=== PATIENT | female | born 1980 | race Caucasian/White ===

== ENCOUNTER 2023-04-16 07:03 | Inpatient (IN) | payer OTHER ==
[2023-04-16] MEDS ORDERED: Ondansetron PF 4 MG/2 ML Vial ONE (07:14)
[2023-04-16] MEDS ORDERED: Morphine 4 MG/ML VIAL ONE (07:14)
[2023-04-16 07:23] LABS: #Basophils 0.1 thou/uL (0.0-0.2); #Eosinphils 0.1 thou/uL (0.0-0.7); #Monocytes 0.8 thou/uL (0.11-0.59); #Neutrophils 7.3 thou/uL (1.40-6.50); %Basophils 0.5 % (0.0-1.0); %Eosinophils 0.9 % (0.0-10.0); %Lymphocytes 21.4 % (21.0-51.0); %Monocytes 7.3 % (0.0-10.0); %Neutrophils 69.4 % (42.0-75.0); Hematocrit 39.1 % (36.0-47.0); Mean Corpuscular HGB CONC 33.2 g/dL (32.0-36.0); Mean Corpuscular Hemoglobin 30.4 pg (27.0-31.0); Mean Corpuscular Volume 91.4 fl (78.0-98.0); Mean Platelet Volume 9.1 fL (7.4-10.4); Platelet Count 350 10x3/uL (130-400); RBC Distribution Width 13.1 % (11.5-14.5); Red Blood Cell (RBC) Count 4.28 mill/uL (4.20-5.40); White Blood Cell (WBC) Count 10.5 10x3/uL (4.8-10.8)
[2023-04-16 07:36] LABS: Prothrombin Time 13.1 sec (12.0-14.7)
[2023-04-16 07:38] LABS: BHCG - Serum Negative (NEGATIVE); Pregs Control Background? CLEAR/WHITE (CLR/WHITE); Pregs Control Bar Appear? YES (CONTROL BAR)
[2023-04-16] MEDS ORDERED: Boostrix 0.5 ML (Tdap) VIAL (>/=7 yrs of age) ONE (07:39)
[2023-04-16] MEDS ORDERED: Sodium Chloride 0.9% 100 ML ONE (07:39)
[2023-04-16] MEDS ORDERED: CEFAZOLIN 1 GM VIAL ONE (07:39)
[2023-04-16] MEDS ORDERED: fentaNYL 50 mcg/mL 1 mL Vial ONE ×5 (08:35→16:07)
[2023-04-16 08:36] LABS: ALT (SGPT) 33 U/L (8-55); AST (SGOT) 49 U/L (5-34); Alkaline Phosphatase 56 U/L (40-110); Anion Gap 17 mmol/L (10-20); BUN (Urea Nitrogen) 11 mg/dL (7.0-18.7); Bilirubin, Total 0.5 mg/dL (0.2-1.2); Calc. Creatinine Clearance 0 mL/min (70-130); Calcium 8.7 mg/dL (7.8-10.44); Carbon Dioxide 29 mmol/L (22-29); Chloride 94 mmol/L (98-107); Estimated GFR 65; Globulin 2.6 g/dL (2.4-3.5); Glucose 137 mg/dL (70-105); Lipase 36 U/L (8-78); Protein, Total 6.6 g/dL (6.0-8.3); Sodium 137 mmol/L (136-145)
[2023-04-16 08:46] LABS: Potassium 2.6 mmol/L (3.5-5.1)
[2023-04-16] MEDS ORDERED: Acetaminophen 325 MG TAB PO PRN (09:41)
[2023-04-16] MEDS ORDERED: Ondansetron ODT 4 MG TAB PO PRN (09:41)
[2023-04-16] MEDS ORDERED: traMADol HCl 50 MG TAB PO PRN (09:41)
[2023-04-16] MEDS ORDERED: Glucagon 1 MG/ML KIT IM PRN (09:41)
[2023-04-16] MEDS ORDERED: Ondansetron PF 4 MG/2 ML Vial IVP PRN (09:41)
[2023-04-16] MEDS ORDERED: Dextrose 50% Abboject 50 ML SYRINGE SLOW IVP PRN (09:41)
[2023-04-16] MEDS ORDERED: Dextrose 5% in Water 1,000 ML IV PRN (09:41)
[2023-04-16] MEDS ORDERED: Ketamine In 0.9 % NaCl 50 MG/5 ML SYRINGE ONE (10:29)
[2023-04-16] MEDS ORDERED: CEFAZOLIN 2 GM in Sodium Chloride 0.9% 100 ML IVPB SCH (11:00)
[2023-04-16 13:02] LABS: Potassium 2.7 mmol/L (3.5-5.1)
[2023-04-16] MEDS: Potassium Chloride 30 MEQ in Sodium Chloride 0.9% 250 ML 250 ML IVPB SCH (18:50)
[2023-04-16] MEDS: Morphine 2 MG/ML VIAL SLOW IVP PRN (19:00)
[2023-04-16 20:05] VITALS: BMI 21.3
[2023-04-16] MEDS: CEFAZOLIN 2 GM in Sodium Chloride 0.9% 100 ML IVPB SCH (22:43)
[2023-04-17 05:04] LABS: #Neutrophils 6.2 thou/uL (1.40-6.50); %Basophils 0.2 % (0.0-1.0); %Eosinophils 0.1 % (0.0-10.0); %Monocytes 10.9 % (0.0-10.0); %Neutrophils 68.6 % (42.0-75.0); Hematocrit 35.4 % (36.0-47.0); Hemoglobin 11.8 g/dL (12.0-16.0); Mean Corpuscular HGB CONC 33.3 g/dL (32.0-36.0); Mean Corpuscular Hemoglobin 30.5 pg (27.0-31.0); Mean Corpuscular Volume 91.5 fl (78.0-98.0); Mean Platelet Volume 9.8 fL (7.4-10.4); Platelet Count 271 10x3/uL (130-400); RBC Distribution Width 13.5 % (11.5-14.5); Red Blood Cell (RBC) Count 3.87 mill/uL (4.20-5.40)
[2023-04-17 07:25] LABS: Anion Gap 16 mmol/L (10-20); BUN (Urea Nitrogen) 9 mg/dL (7.0-18.7); Calc. Creatinine Clearance 92 mL/min (70-130); Calcium 8.6 mg/dL (7.8-10.44); Carbon Dioxide 20 mmol/L (22-29); Chloride 106 mmol/L (98-107); Estimated GFR 107; Glucose 103 mg/dL (70-105); Potassium 3.2 mmol/L (3.5-5.1); Sodium 139 mmol/L (136-145)
[2023-04-17] MEDS: FLU VACC QS2023-24(6MOS UP)/PF 60 MCG/0.5 ML SYRINGE IM ONE (08:20)
[2023-04-17] MEDS ORDERED: PROPOFOL 20 ML ONE (11:20)
[2023-04-17] MEDS ORDERED: Lidocaine 1% PF 5 ML VIAL ONE (11:20)
[2023-04-17] MEDS ORDERED: fentaNYL PF 100 MCG/2 ML SYRINGE ONE (11:20)
[2023-04-17] MEDS ORDERED: fentaNYL 50 mcg/mL 1 mL Vial ONE ×2 (11:21→12:45)
[2023-04-17] MEDS ORDERED: Bupivacaine PF 0.5% 30 ML VIAL ONE (11:21)
[2023-04-17] MEDS ORDERED: Midazolam HCl 2 mg/2 ml Vial ONE (11:21)
[2023-04-17] MEDS ORDERED: CEFAZOLIN 2 GM VIAL ONE (11:25)
[2023-04-17] MEDS ORDERED: Sodium Chloride 0.9% 100 ML ONE (11:25)
[2023-04-17] MEDS ORDERED: Ondansetron PF 4 MG/2 ML Vial ONE (11:41)
[2023-04-17] MEDS ORDERED: Dexamethasone 20 MG/5 ML VIAL ONE (11:41)
[2023-04-17] MEDS ORDERED: Ketorolac Tromethamine 30 MG (1 mL) VIAL ONE (11:41)
[2023-04-17] MEDS ORDERED: fentaNYL 50 mcg/mL 1 mL Vial SLOW IVP PRN (11:56)
[2023-04-17] MEDS ORDERED: traMADol HCl 50 MG TAB PO PRN ×2 (12:00)
[2023-04-17] MEDS: Ketorolac Tromethamine 30 MG (1 mL) VIAL IVP SCH (12:00)
[2023-04-17] MEDS ORDERED: Ropivacaine 0.2% 550 ML 550 ML NERVE BLCK SCH (12:00)
[2023-04-17] MEDS ORDERED: Ondansetron PF 4 MG/2 ML Vial IVP PRN (12:00)
[2023-04-17] MEDS ORDERED: Promethazine HCl 25 MG/ML VIAL IM PRN (12:00)
[2023-04-17] MEDS ORDERED: Zolpidem Tartrate 5 MG TAB PO PRN (12:00)
[2023-04-17] MEDS ORDERED: HYDROcodone/Acetaminophen 5/325 mg Tablet PO PRN ×2 (12:00)
[2023-04-17] MEDS ORDERED: ePHEDrine Sulfate 50 MG/10 ML VIAL ONE (12:25)
[2023-04-17] MEDS: Potassium Chloride 20 MEQ in Premix 1 BAG IVPB SCH (14:44)
[2023-04-17] MEDS: Gabapentin 300 MG CAP PO SCH (15:42)
[2023-04-17] MEDS: Lactulose 20 GM (30 mL) UDCUP PO SCH (15:42)
[2023-04-17] MEDS: traMADol HCl 50 MG TAB PO SCH (17:59)
[2023-04-17] MEDS: Acetaminophen 500 MG TAB PO SCH (17:59)
[2023-04-17] MEDS: CEFAZOLIN 2 GM in Sodium Chloride 0.9% 100 ML IVPB SCH (21:17)
[2023-04-17] MEDS: Senokot S 8.6-50 MG TAB PO SCH (21:17)
[2023-04-17] MEDS: Cyclobenzaprine 10 MG TAB PO PRN (21:24)
[2023-04-17] MEDS: Morphine 4 MG/ML VIAL SLOW IVP PRN (21:24)
[2023-04-18 08:35] VITALS: TEMP 98.1
[2023-04-18] MEDS: traMADol HCl 50 MG TAB PO PRN (08:39)
[2023-04-18] MEDS: Polyethylene Glycol 3350 17 GM Packet PO SCH (08:39)
[2023-04-18] MEDS: HYDROcodone/Acetaminophen 5/325 mg Tablet PO SCH (11:40)
[2023-04-18] MEDS: Acetaminophen 325 MG TAB PO SCH (11:40)
[2023-04-18] MEDS: Ibuprofen 600 MG TAB PO SCH (12:06)
[2023-04-18] MEDS: HYDROcodone/Acetaminophen 10/325 mg Tablet PO PRN (12:06)
[2023-04-18 12:09] VITALS: BP 155/82
[2023-04-18] MEDS ORDERED: Acetaminophen 500 MG TAB PO SCH (18:00)
[2023-04-18] MEDS ORDERED: Enoxaparin 40 MG (0.4 mL) SYRINGE SC SCH (21:00)
== END 2023-04-18 15:00 | disposition home or self-care (01) | DRG 494 ==
LOC: ERS 07:03 → ERHOLD 09:41 → SURG B 16:55
PROVIDERS: ADMIT Specialist; ATTEND Specialist
PROC: 0QSGXZZ Reposition Right Tibia, External Approach (ICD-10-PCS; 2023-04-16)
PROC: 0QSG04Z Reposition Right Tibia with Internal Fixation Device, Open Approach (ICD-10-PCS; principal; 2023-04-17)
PROC: 0QSJ04Z Reposition Right Fibula with Internal Fixation Device, Open Approach (ICD-10-PCS; 2023-04-17)
DX: S82.841A Displaced bimalleolar fracture of right lower leg, initial encounter for closed fracture (principal); S93.04XA Dislocation of right ankle joint, initial encounter; S82.51XA Displaced fracture of medial malleolus of right tibia, initial encounter for closed fracture; S92.811A Other fracture of right foot, initial encounter for closed fracture; E87.6 Hypokalemia; K59.00 Constipation, unspecified; S82.831A Other fracture of upper and lower end of right fibula, initial encounter for closed fracture; S62.307A Unspecified fracture of fifth metacarpal bone, left hand, initial encounter for closed fracture; Y92.89 Other specified places as the place of occurrence of the external cause; V59.88XA Occupant (driver) (passenger) of pick-up truck or van injured in other specified transport accidents, initial encounter
CPT/HCPCS: 12004; 27840; 36415; 70450; 71260; 72125; 74177; 80048; 80053; 83690; 84703; 85025; 85610; 85730; 90471; 90715; 93005; 96365; 96375; 96376; 99152; A4306; C1713; C1776; G0390; J0665; J0690; J1100; J1885; J2250; J2270; J2272; J2405; J2704; J2795; J3010; J3480; J3490